=== PATIENT | female | born 1950 | race Caucasian/White ===

== ENCOUNTER → 2018-02-07 | Outpatient (CLI) | payer OTHER | LOC: FIMAGING 07:45 | PROVIDERS: ATTEND Internal Medicine | DX: Z12.31 Encounter for screening mammogram for malignant neoplasm of breast (principal) ==

== ENCOUNTER → 2018-02-22 | Outpatient (CLI) | payer OTHER | LOC: FIMAGING 12:45 | PROVIDERS: ATTEND Internal Medicine | DX: N63.20 Unspecified lump in the left breast, unspecified quadrant (principal) ==

== ENCOUNTER → 2018-03-07 | Outpatient (CLI) | payer OTHER ==
[~2018-03-07] MED LIST: BUPIVACAINE 0.5% 30 ML SDV ONE; LIDOCAINE 1% 300 MG/30 ML SDV ONE; THROMBIN (BOVINE) 5,000 UNIT VIAL TP ONE
== END ==
LOC: FIMAGING 08:10
PROVIDERS: ATTEND Internal Medicine
PROC: 0HBU3ZX Excision of Left Breast, Percutaneous Approach, Diagnostic (ICD-10-PCS; principal; 2018-03-07)
PROC: BH01ZZZ Plain Radiography of Left Breast (ICD-10-PCS; principal; 2018-03-07)
DX: R92.8 Other abnormal and inconclusive findings on diagnostic imaging of breast (principal)

== ENCOUNTER → 2018-03-15 | Outpatient (CLI) | payer OTHER ==
[~2018-03-15] MED LIST changes: -BUPIVACAINE 0.5% 30 ML SDV ONE; +GADOBUTROL 10 ML VIAL IVP ONE; -LIDOCAINE 1% 300 MG/30 ML SDV ONE; -THROMBIN (BOVINE) 5,000 UNIT VIAL TP ONE
== END ==
LOC: FIMAGING 08:57
PROVIDERS: ATTEND Surgery
DX: C50.411 Malignant neoplasm of upper-outer quadrant of right female breast (principal)
CPT/HCPCS: 0159T; A9585; C8908

== ENCOUNTER 2018-03-22 06:34 | Day surgery (SDC) | payer OTHER ==
[2018-03-22] MEDS ORDERED: ceFAZolin 2 GM/SWFI 2 GM/20 ML SYR IVP ONE (07:01)
[2018-03-22] MEDS ORDERED: LR 1,000 ML IV ONE (07:02)
[2018-03-22] MEDS ORDERED: LIDOCAINE 1% 300 MG/30 ML SDV ONE (07:39)
--- NOTE | 2018-03-22 08:25 | PDANEPAE ---
ANE History of Present Illness 67 yo female with L breast mass for lumpectomy. ANE Past Medical History - Cardiovascular History Hx Hypertension: Yes Hx Arrhythmias: No Hx Chest Pain: No Hx Coronary Artery / Peripheral Vascular Disease: No Hx CHF / Valvular Disease: No Hx Palpitations: No Cardiovascular History Comment: MILD HEART MURMUR MONITORED - Pulmonary History Hx COPD: No Hx Asthma/Reactive Airway Disease: No Hx Recent Upper Respiratory Infection: No Hx Oxygen in Use at Home: No Hx Sleep Apnea: No - Neurologic History Hx Cerebrovascular Accident: No Hx Seizures: No Hx Dementia: No - Endocrine History Hx Diabetes: No Hypothyroid: No Hyperthyroid: No - Renal History Hx Renal Disorders: Yes Renal History Comment: Cr 1.1, GFR 50 - Liver History Hx Hepatic Disorders: No - Neurological & Psychiatric Hx Hx Neurological and Psychiatric Disorders: No - Cancer History Hx Cancer: Yes Cancer History Comment: L BREAST CA - Congenital Disorder History Hx Congenital Disorders: No - GI History Hx Gastrointestinal Disorders: No - Other Health History Other Health History: NEG - Chronic Pain History Chronic Pain: No - Surgical History Prior Surgeries: FIBROIDS REMOVED. C SECTION. HYSTERECTOMY. L TKA. R MELA ANE Review of Systems Review of systems is: negative Review of Systems: ANE Patient History - Allergies Allergies/Adverse Reactions: No Allergies [NKDA] Allergy (Verified 01/04/10 15:03) - Home Medications Home Medications: Aspirin 03/21/18 [Last Taken Unknown] HCTZ (*) 03/21/18 [Last Taken Unknown] Herbals/Supplements -Info Only 03/21/18 [Last Taken Unknown] Potassium Acetate 03/21/18 [Last Taken Unknown] - NPO status NPO Since - Liquids (Date): 03/22/18 NPO Since - Liquids (Time): 07:00 NPO Since - Solids (Date): 03/21/18 NPO Since - Solids (Time): 19:00 - Anes Hx Anes Hx: post operative nausea and vomiting - Smoking Hx Smoking Status: Never smoked Marijuana use: No - Family Anes Hx Family Anes Hx: neg - N/A Family Hx Anesthesia Complications: NEG ANE Labs/Vital Signs - Labs Result Diagrams: 03/22/18 07:00 - Vital Signs Blood Pressure: 150/100 (pt says BP ordinarily 130s/70s) Heart Rate: 74 Respiratory Rate: 18 O2 Sat (%): 97 ANE Physical Exam - Airway Neck exam: FROM Mallampati Score: Class 2 Mouth exam: normal dental/mouth exam - Pulmonary Pulmonary: clear to auscultation - Cardiovascular Cardiovascular: regular rate and rhythym - ASA Status ASA Status: II ANE Anesthesia Plan Anesthesia Plan: GA w LMA
[2018-03-22] MEDS ORDERED: BUPIVACAINE 0.5% 30 ML SDV ONE (09:22)
[2018-03-22] MEDS ORDERED: THROMBIN (BOVINE) 5,000 UNIT VIAL TP ONE (09:23)
--- NOTE | 2018-03-22 09:34 | PDHPUP ---
History & Physical Update H&P update statement: This history and physical update is based on an assessment of the patient which was completed after admission or registration (within 24 hours), but prior to the surgery/procedure. H&P update: H&P reviewed & patient examined, no change in patient's condition since H&P completed
[2018-03-22] MEDS ORDERED: fentaNYL 100 MCG/2 ML INJ ONE (09:57)
[2018-03-22] MEDS ORDERED: PROPOFOL/EMULSION 500 MG/50 ML BOTTLE IV ONE (09:57)
[2018-03-22] MEDS ORDERED: LIDOCAINE 2% 5 ML SDV ONE (09:57)
[2018-03-22] MEDS ORDERED: DEXAMETHASONE 4 MG/ML VIAL ONE (09:57)
[2018-03-22] MEDS ORDERED: ONDANSETRON 4 MG/2 ML VIAL ONE (10:43)
[2018-03-22] MEDS ORDERED: PROPOFOL 200 MG/20 ML VIAL ONE (10:52)
[2018-03-22] MEDS ORDERED: HYDROCODONE/APAP 5/325 TAB PO PRN (11:03)
[2018-03-22] MEDS ORDERED: NALOXONE HCL 0.4 MG/ML INJ IVP PRN (11:03)
[2018-03-22] MEDS ORDERED: ALBUTEROL 3 ML DEYVIAL IH PRN (11:03)
[2018-03-22] MEDS ORDERED: LR 500 ML IV PRN (11:03)
[2018-03-22] MEDS ORDERED: fentaNYL 100 MCG/2 ML INJ IVP PRN (11:03)
[2018-03-22] MEDS ORDERED: PROMETHAZINE HCL 25 MG/ML INJ IVP PRN (11:03)
--- NOTE | 2018-03-22 11:33 | POSTANESTH ---
Post Anesthetic Evaluation Cardiovascular Status: Normal, Stable Respiratory Status: Normal, Stable Level of Consciousness/Mental Status: Can Participate in Eval, Moderately Sleepy Pain Control: Adequate, Prn Tx Ordered Nausea/Vomiting Control: Adequate, Prn Tx Ordered Complications Possibly Related to Anesthesia: None Noted
--- NOTE | 2018-03-22 11:34 | POSTOPPROG ---
Post Op Note Date of Operation: 03/22/18 Surgeon: Ryan Haas Discovery Guide: Gurvinder Anesthesiologist: Sandoval Anesthesia: GET(General Endotracheal) Pre-op Diagnosis: Left breast mass Post-op Diagnosis: same Indication: same Procedure: left breast lumpectomy and sentinel node biopsies Inf/Abcess present in the surg proc area at time of surgery?: No Depth: Superfical (Skin SQ) EBL: Minimal Drains: Kelton Delaney Specimen(s): Multiple sentinel nodes - frozen Left extra axillary nodes - permanent left breast mass - permanent
[2018-03-22 12:08] VITALS: BP 139/90
--- NOTE | 2018-03-22 13:58 | GOP ---
[f rep st] OPERATIVE REPORT DATE OF OPERATION: SURGEON: Ryan Haas MD MOTOR ASSEMBLY SUPERVISOR: Keiko Hollins, nurse practitioner ANESTHESIOLOGIST: Dr. Sandoval. PREOPERATIVE DIAGNOSIS: Left breast cancer. POSTOPERATIVE DIAGNOSIS: Left breast cancer. PROCEDURE PERFORMED: Left needle localization lumpectomy and sentinel node biopsy. FINDINGS: The patient was found to have multiple positive sentinel nodes with a gamma probe, but the y were all negative on frozen section. ESTIMATED BLOOD LOSS: Less than 20 cc. DESCRIPTION OF PROCEDURE: The patient was taken to the operating room where she received satisfactor y general endotracheal anesthesia by Dr. Sandoval, placed in supine position with the left arm outstre tched on arm board. Using a gamma probe, an area of sentinel node was identified. Incision made in the base of the axill a. Dissection extended down through subcutaneous tissue. Hemostasis was obtained with electrocauter y. The axillary envelope was opened. Gamma probe was used to isolate a group of nodes that were all positive and these were all dissected free with electrocautery and/or hemoclips. Hemostasis was tho roughly obtained. After removal of 4 separate nodes, there was no further significant gamma activity in the axilla. Hemostasis was carefully obtained. Specimens were sent to Pathology. Attention was turned to the needle localization site. A curvilinear incision was made in the upper o uter aspect of the left breast. Dissection carried down through subcutaneous tissue. Skin flaps wer e developed above and below the needle insertion site, and then, a generous full-thickness excision o f biopsy was done of the targeted specimen. It was completely removed. Hemostasis was assured. The specimen was inked in the appropriate manner and then sent to x-ray to confirm the presence of the t arget and sent to Pathology. Hemostasis was carefully obtained. Breast tissue was approximated in mammoplastic technique in multi ple layers with 3-0 Vicryl for the breast tissue and subcutaneous tissue, and the skin was closed wit h 4-0 Monocryl subcuticular stitch. The wound was infiltrated with 0.5% Marcaine and some topical th rombin was placed in the cavity. In the interim, the frozen section was returned on the sentinel nod e, and the axilla was closed with 3-0 Vicryl for the fascia and subcu, 4-0 Monocryl subcuticular stit ch for the skin. That area was also infiltrated with 0.5% Marcaine and some topical thrombin placed in the axilla. She tolerated the procedure well, taken recovery room in good condition. COMPLICATIONS: No complications. /[id number]/MODL
== END 2018-03-22 12:35 | disposition home or self-care (01) ==
LOC: FIMAGING 06:34
PROVIDERS: ATTEND Surgery
DX: C50.012 Malignant neoplasm of nipple and areola, left female breast (principal); Z17.0 Estrogen receptor positive status [ER+]; I10 Essential (primary) hypertension; D64.9 Anemia, unspecified; Z96.641 Presence of right artificial hip joint; Z96.652 Presence of left artificial knee joint
CPT/HCPCS: 19301; 38500; 76098; 78195; A9520; J0690; J1100; J2405; J2704; J3010

== ENCOUNTER → 2018-08-29 | Outpatient (CLI) | payer OTHER | LOC: FIMAGING 14:10 | PROVIDERS: ATTEND Surgery | DX: Z08 Encounter for follow-up examination after completed treatment for malignant neoplasm (principal); Z85.3 Personal history of malignant neoplasm of breast; Z98.890 Other specified postprocedural states ==

== ENCOUNTER → 2018-10-20 | Outpatient (CLI) | payer OTHER | LOC: FIMAGING 11:55 | PROVIDERS: ATTEND Orthopaedic Surgery | DX: M17.11 Unilateral primary osteoarthritis, right knee (principal) ==

== ENCOUNTER 2018-11-07 13:00 | Observation (INO) | payer OTHER ==
[2018-11-13] MEDS ORDERED: TRANEXAMIC ACID 3,000 MG in NS (SYRINGE) 50 ML IRR ONE (13:56)
[2018-11-13] MEDS ORDERED: ROPIVACAINE 0.2% 80 MG, EPINEPHrine 0.2 MG, KETOROLAC TROMETHAMINE 30 MG in SYRINGE 0 ML IU ONE (13:56)
[2018-11-14] MEDS ORDERED: PHENYLEPHRINE 10 MG/ML SDV ONE (07:08)
[2018-11-14] MEDS ORDERED: LIDOCAINE 2% 100 MG/5 ML SYR ONE (07:08)
[2018-11-14] MEDS ORDERED: BUPIVACAINE/DEXTROSE 7.5MG/ML 2 ML SPINAL AMP SP ONE (07:08)
[2018-11-14] MEDS ORDERED: DEXAMETHASONE 4 MG/ML VIAL ONE (07:08)
[2018-11-14] MEDS ORDERED: PROPOFOL/EMULSION 500 MG/50 ML BOTTLE IV ONE (07:08)
[2018-11-14] MEDS ORDERED: ONDANSETRON 4 MG/2 ML VIAL ONE (07:08)
[2018-11-14] MEDS ORDERED: fentaNYL 100 MCG/2 ML INJ ONE ×2 (07:08→10:25)
[2018-11-14] MEDS ORDERED: ceFAZolin 2 GM/DEXTROSE 100 ML IV ONE (07:30)
[2018-11-14] MEDS ORDERED: DEXAMETHASONE 4 MG/ML VIAL IVP ONE (07:30)
[2018-11-14] MEDS ORDERED: ACETAMINOPHEN 325 MG TAB PO ONE (07:30)
[2018-11-14] MEDS ORDERED: LR 1,000 ML IV ONE (07:30)
[2018-11-14] MEDS ORDERED: FAMOTIDINE 20 MG TAB PO ONE (07:30)
[2018-11-14] MEDS ORDERED: LIDOCAINE 1% 2 ML INJ ID PRN (07:30)
[2018-11-14] MEDS ORDERED: TRANEXAMIC ACID 3,000 MG/50 ML BAG IRR ONE (07:42)
[2018-11-14] MEDS ORDERED: MIDAZOLAM 2 MG/2 ML VIAL ONE (09:08)
[2018-11-14] MEDS ORDERED: MIDAZOLAM 2 MG/2 ML VIAL IVP ONE (09:10)
--- NOTE | 2018-11-14 09:10 | PDANEPAE ---
ANE History of Present Illness R knee DJD, here for R TKA ANE Past Medical History - Cardiovascular History Hx Hypertension: Yes Hx Arrhythmias: No Hx Chest Pain: No Hx Coronary Artery / Peripheral Vascular Disease: No Hx CHF / Valvular Disease: No Hx Palpitations: No Cardiovascular History Comment: MILD HEART MURMUR MONITORED - Pulmonary History Hx COPD: No Hx Asthma/Reactive Airway Disease: No Hx Recent Upper Respiratory Infection: No Hx Oxygen in Use at Home: No Hx Sleep Apnea: No Sleep Apnea Screening Result - Last Documented: Negative - Neurologic History Hx Cerebrovascular Accident: No Hx Seizures: No Hx Dementia: No - Endocrine History Hx Diabetes: No - Renal History Hx Renal Disorders: No Renal History Comment: Cr 1.1, GFR 50 - Liver History Hx Hepatic Disorders: No - Neurological & Psychiatric Hx Hx Neurological and Psychiatric Disorders: No - Cancer History Hx Cancer: Yes Cancer History Comment: L BREAST CA - Congenital Disorder History Hx Congenital Disorders: No - GI History Hx Gastrointestinal Disorders: No - Other Health History Other Health History: PAST HX - ANEMIA FOLLOWING KNEE SURG. ARHTRITIS - Chronic Pain History Chronic Pain: Yes (R KNEE PAIN) - Surgical History Prior Surgeries: LUMPECTOMY. FIBROIDS REMOVED. C SECTION. HYSTERECTOMY. L TKA. R MELA ANE Review of Systems Review of Systems: - Exercise capacity METS (RN): 5 METS ANE Patient History - Allergies Allergies/Adverse Reactions: No Allergies [NKDA] Allergy (Verified 01/04/10 15:03) - Home Medications Home Medications: Anastrozole [Arimidex 1 mg (*)] 1 mg PO DAILY 10/31/18 [Last Taken 11/14/18 06: 00] Aspirin [Aspirin 81mg (*)] 81 mg PO DAILY 10/31/18 [Last Taken 11/07/18] Cholecalciferol Vit D3 [Vitamin D3 (*)] 1,000 units PO DAILY 10/31/18 [Last Taken 10/31/18] Hydrochlorothiazide [Hydrochlorothiazide] 25 mg PO DAILY 10/31/18 [Last Taken 08:00] Potassium Cl [Klor-Con 20 meq (*)] 60 meq PO HS 10/31/18 [Last Taken 11/12/18 20 :00] - NPO status NPO Since - Liquids (Date): 11/13/18 NPO Since - Liquids (Time): 23:00 NPO Since - Solids (Date): 11/13/18 NPO Since - Solids (Time): 18:30 - Smoking Hx Smoking Status: Never smoked - Family Anes Hx Family Hx Anesthesia Complications: NEG ANE Labs/Vital Signs - Vital Signs Blood Pressure: 135/95 Heart Rate: 80 Respiratory Rate: 16 O2 Sat (%): 94 Height: 170.18 cm Weight: 78.471 kg ANE Physical Exam - Airway Neck exam: FROM Mallampati Score: Class 1 Mouth exam: normal dental/mouth exam - Pulmonary Pulmonary: no respiratory distress, no rales or rhonchi - Cardiovascular Cardiovascular: regular rate and rhythym, no murmur, rub, or gallop - ASA Status ASA Status: II ANE Anesthesia Plan Anesthesia Plan: GA with mask, spinal Regional Anesthesia: single shot NB
[2018-11-14] MEDS ORDERED: NALOXONE HCL 0.4 MG/ML INJ IVP PRN (10:18)
[2018-11-14] MEDS ORDERED: HYDROmorphONE/DILAUDID 2 MG/ML INJ IVP PRN (10:18)
[2018-11-14] MEDS ORDERED: ACETAMINOPHEN 500 MG TAB PO PRN (10:18)
[2018-11-14] MEDS ORDERED: MEPERIDINE 25 MG/0.5 ML AMP IVP PRN (10:18)
[2018-11-14] MEDS ORDERED: fentaNYL 100 MCG/2 ML INJ IVP PRN (10:18)
[2018-11-14] MEDS ORDERED: LR 500 ML IV PRN (10:18)
[2018-11-14] MEDS ORDERED: oxyCODONE IR 5 MG TAB PO PRN ×2 (10:18→10:47)
[2018-11-14] MEDS ORDERED: DIAZEPAM 5 MG/ML 1 ML SYR IVP PRN (10:18)
[2018-11-14] MEDS ORDERED: PROMETHAZINE HCL 25 MG/ML INJ IVP PRN ×2 (10:18→10:47)
--- NOTE | 2018-11-14 10:18 | POSTANESTH ---
Post Anesthetic Evaluation Cardiovascular Status: Normal, Stable Respiratory Status: Normal, Stable Level of Consciousness/Mental Status: Can Participate in Eval, Mildly Sleepy, Arousable Pain Control: Adequate, Prn Tx Ordered Nausea/Vomiting Control: Adequate, Prn Tx Ordered Complications Possibly Related to Anesthesia: None Noted (moving both legs)
[2018-11-14] MEDS ORDERED: MAGNESIUM HYDROXIDE 30 ML UDCUP PO PRN (10:47)
[2018-11-14] MEDS ORDERED: ONDANSETRON DISINTEGRATING 4 MG TAB PO PRN (10:47)
[2018-11-14] MEDS ORDERED: diphenhydrAMINE 25 MG CAP PO PRN (10:47)
[2018-11-14] MEDS ORDERED: METOCLOPRAMIDE 10 MG/2 ML VIAL IVP PRN (10:47)
[2018-11-14] MEDS ORDERED: CYCLOBENZAPRINE 10 MG TAB PO PRN (10:47)
[2018-11-14] MEDS ORDERED: DIPHENOXYLATE/ATROPINE LOMOTIL 1 TAB PO PRN (10:47)
[2018-11-14] MEDS ORDERED: POLYETHYLENE GLYCOL 3350 17 GM PKT PO PRN (10:47)
[2018-11-14] MEDS ORDERED: ONDANSETRON 4 MG/2 ML VIAL IVP PRN (10:47)
[2018-11-14] MEDS ORDERED: TEMAZEPAM 15 MG CAP PO PRN (10:47)
[2018-11-14] MEDS ORDERED: PROMETHAZINE HCL 25 MG SUPPR PR PRN (10:47)
[2018-11-14] MEDS ORDERED: LACTULOSE 20 GM/30 ML UDCUP PO PRN (10:47)
[2018-11-14] MEDS ORDERED: BISACODYL 10 MG SUPP PR PRN (10:47)
--- NOTE | 2018-11-14 10:47 | POSTOPPROG ---
Post Op Note Date of Operation: 11/14/18 Surgeon: Yinka Herrera Senior C Software Engineer: Naty Herrera and Leidy Byrnes PA-C Anesthesiologist: Dr. Bryant Anesthesia: Spinal, Other (Specify) (adductor canal block) Pre-op Diagnosis: Right knee OA Post-op Diagnosis: same Indication: right knee pain Procedure: Right TKA, robot assisted Findings: severe OA of right knee Inf/Abcess present in the surg proc area at time of surgery?: No EBL: 50-100
[2018-11-14] MEDS ORDERED: LR 1,000 ML IV SCH (11:00)
[2018-11-14] MEDS: ACETAMINOPHEN 325 MG TAB PO SCH ×3 (14:10→23:31)
[2018-11-14] MEDS: ceFAZolin 2 GM/DEXTROSE 100 ML IV SCH (18:16)
[2018-11-14] MEDS: ASPIRIN 81 MG CHEWABLE TAB PO SCH (20:32)
[2018-11-14] MEDS: FAMOTIDINE 20 MG TAB PO SCH (20:32)
[2018-11-14] MEDS: SENNOSIDES/DOCUSATE SODIUM TAB PO SCH (20:33)
[2018-11-14] MEDS ORDERED: POTASSIUM CL 20 MEQ TAB PO SCH (21:00)
[2018-11-15] MEDS: ceFAZolin 2 GM/DEXTROSE 100 ML IV SCH (02:17)
[2018-11-15] MEDS: ACETAMINOPHEN 325 MG TAB PO SCH (05:09)
[2018-11-15 07:43] VITALS: BP 127/85
[2018-11-15] MEDS: FAMOTIDINE 20 MG TAB PO SCH (08:30)
[2018-11-15] MEDS: ASPIRIN 81 MG CHEWABLE TAB PO SCH (08:30)
[2018-11-15] MEDS: SENNOSIDES/DOCUSATE SODIUM TAB PO SCH (08:31)
[2018-11-15] MEDS ORDERED: ANASTROZOLE 1 MG TAB PO SCH (09:00)
[2018-11-15] MEDS ORDERED: HYDROCHLOROTHIAZIDE 25 MG TAB PO SCH (09:00)
--- NOTE | 2018-11-15 10:54 | SOAPPROG ---
SOAP Progress Note Assessment/Plan: Assessment: Patient is doing well POD 1 s/p R TKA Pain management: pain is well controlled on oral pain meds. VTE ppx: recommend aspirin 81 mg BID for 4 weeks, cont BRADLEY and SCDs Anemia: level is expected initially postop. Asymptomatic. Continue to monitor D/c planning: Patient has done better than anticipated and would like to be discharged to home today. Patient must be released from PT before discharge to home. Plan: 11/15/18 10:54 Subjective: patient is doing well today, denies SOB, chest pain and N/V Objective: Vital Signs Temp Pulse Resp BP Pulse Ox 36.8 C 68 16 127/85 H 97 11/15/18 07:43 11/15/18 07:43 11/15/18 07:43 11/15/18 08:29 11/15/18 07:43 Laboratory Results 11/15/18 05:31 11/15/18 05:31 11/14/18 11/15/18 11/16/18 05:59 05:59 05:59 Intake Total 1305 Output Total 180 600 Balance 1125 -600 RLE: incision dressing is clean and dry, NVI, +pf/df ICD10 Worksheet Patient Problems: Problems Problem Status Onset Primary localized osteoarthritis of right knee Acute
--- NOTE | 2018-11-15 11:53 | ASMTLACE ---
LACE Length of stay for Answers: 2 days current admission Acuity / Level of Answers: No Care: Did the patient have an inpatient admission? Comorbidities - select Answers: Any tumor (including all that apply lymphoma or leukemia) Opioid dependence / Chronic pain Other Notes: HTN # of Emergency department Answers: 0 visits in the last 6 months Score: 9 Date Signed: 11/15/2018 11:52 AM Electronically Signed By:SANTA Sol
--- NOTE | 2018-11-16 20:19 | GOP ---
DATE OF OPERATION: 11/14/2018 SURGEON: Jennifer Herrera MD BUSINESS CONTROL MANAGER: COURTNEY Leos ANESTHESIA: Spinal. PREOPERATIVE DIAGNOSIS: Right knee osteoarthritis. POSTOPERATIVE DIAGNOSIS: Right knee osteoarthritis. PROCEDURE PERFORMED: Right total knee arthroplasty with computer navigation, robotic assist. FINDINGS: ESTIMATED BLOOD LOSS: 30 cc. INDICATIONS: The patient is a 67-year-old female with severe and progressive pain and deformity of the right knee unresponsive to conservative care. The risks and benefits of surgical intervention were explained in detail. DESCRIPTION OF PROCEDURE: The patient was brought to the operative room and placed on the table in the supine position. Spinal anesthesia was induced without difficulty. A pneumatic tourniquet was applied about the right proximal thigh, and the leg was prepped and draped in a sterile fashion. The leg chiu was applied. After exsanguination by elevation the tourniquet was inflated to 250 mmHg. Incision was made anterior medial from the tibial tuberosity to a point 2 cm proximal to the superior pole of the patella. Medial parapatellar arthrotomy was carried out from the superior pole of the patella and posteriorly in line with the fibers of the Type II VMO. The medial collateral ligament was elevated and the infrapatellar fat pad was resected. The patella was everted and the articular surface was excised. A 38 mm patellar button was placed. Attention was turned first to the distal aspect of the femur. After exposure of the femur, 2 half pins were placed for fixation of the femoral array. In a similar fashion, 2 pins were placed anteromedial on the tibia for fixation of the tibial array. External land marking and registration of the hip center was performed without difficulty. Internal femoral and tibial registration was carried out without difficulty and the femoral and tibial checkpoints were placed and verified for accuracy. Attention was turned to the femur. The foot print for the size 5 femoral component was cut with the saw using the [employer] robotic system and verified for accuracy against the CT based plan. In a similar fashion, the saw was used to cut the footprint for the size 5 tibial component using the [employer] system and verified for accuracy against the CT based plan. The tibial articular surface was excised without difficulty, followed by the intercondylar box cut. The knee was extended and the remnants of the medial and lateral meniscus were excised. The posterior capsule was injected with ropivacaine, epinephrine and Toradol. A size 5 tibial tray was positioned. Trial reduction was then carried out. There was excellent range of motion, alignment, and stability using the 5 x 11 mm polyethylene. All trials were then removed. The joint was thoroughly irrigated and carefully dried. The pressfit components were implanted. The permanent 5 x 11 mm polyethylene was placed without difficulty. The tourniquet was deflated and all bleeders were coagulated. The wound was thoroughly irrigated and closed using interrupted sutures of 2-0 Vicryl for the joint capsule. The subcu was closed with 3-0 Vicryl and the skin with 4-0 Monocryl. Dermabond and Steri-Strips were applied followed by a compressive dressing. The patient was then moved from the operating room to the recovery room in good condition, having tolerated the procedure well. PATHOLOGY: Severe medial and patellofemoral osteoarthritis. /[id number]/MODL MTDD
--- NOTE | 2018-11-19 13:50 | GDS ---
ADMISSION DIAGNOSIS: Right knee osteoarthritis. DISCHARGE DIAGNOSIS: Right knee osteoarthritis. PROCEDURE: Right total knee arthroplasty robotic assisted. VTE PROPHYLAXIS: Recommend aspirin 81 mg twice daily for 4 weeks. BRIEF DESCRIPTION OF HOSPITAL STAY: Patient was admitted for an elective joint arthroplasty. The pa brice tolerated the procedure well and has passed physical therapy. The patient was given appropriat e antibiotic prophylaxis and venous thromboembolism prophylaxis. The patient's pain was well control led on oral pain medication, patient was holding down food, and had urinated. Decision was made to d ischarge the patient. The patient was given post-operative prescriptions pre-operatively. PLAN: To follow up with Dr. Herrera's office at [facility] December 06 at 8:45 a.m. /[id number]/MODL
== END 2018-11-15 10:45 | disposition home or self-care (01) ==
LOC: F3N 11-14 07:13
PROVIDERS: ADMIT Orthopaedic Surgery; ATTEND Orthopaedic Surgery
PROC: 0SRC06Z Replacement of Right Knee Joint with Oxidized Zirconium on Polyethylene Synthetic Substitute, Open Approach (ICD-10-PCS; principal; 2018-11-14 09:00)
DX: M17.11 Unilateral primary osteoarthritis, right knee (principal); D62 Acute posthemorrhagic anemia; R01.1 Cardiac murmur, unspecified; Z96.652 Presence of left artificial knee joint; Z96.641 Presence of right artificial hip joint; Z23 Encounter for immunization; Z85.3 Personal history of malignant neoplasm of breast
CPT/HCPCS: 27447; 73560; 88311; 90686; 97110; 97116; 97161; C1776; G0008; J0171; J0690; J1100; J1885; J2001; J2250; J2370; J2405; J2704; J2795; J3010

== ENCOUNTER → 2019-02-08 | Outpatient (CLI) | payer OTHER | LOC: FIMAGING 07:27 | PROVIDERS: ATTEND Internal Medicine Hematology & Oncology | DX: Z12.31 Encounter for screening mammogram for malignant neoplasm of breast (principal); Z85.3 Personal history of malignant neoplasm of breast ==